=== PATIENT | female | born 1995 | race Native Hawaiian/Other Pacific Islander ===

== ENCOUNTER 2018-03-26 11:20 | Emergency (ER) | payer OTHER ==
[2018-03-26 11:52] VITALS: BP 130/88
--- NOTE | 2018-03-26 11:57 | Emergency Department Report ---
ED General Adult HPI - General Chief complaint: Extremity Injury, Lower Stated complaint: RT FOOT INFECTED/ONEIL/PAIN Time Seen by Provider: 03/26/18 11:48 Source: patient Mode of arrival: Ambulatory Limitations: No Limitations - History of Present Illness Initial comments: Patient presents to the emergency department with a chief complaint of a burn to her right foot that occurred on Friday. Patient states that hot coffee was spilled on her foot. Patient states she's been applying Neosporin on the wound since it occurred and presents today for evaluation to assure she does have an infection. -: Sudden Location: lower extremity Radiation: non-radiation Severity scale (0 -10): 2 Quality: burning Consistency: constant Improves with: none Worsens with: none Associated Symptoms: denies other symptoms Treatments Prior to Arrival: none ED Review of Systems ROS: Stated complaint: RT FOOT INFECTED/ONEIL/PAIN Other details as noted in HPI Comment: All other systems reviewed and negative Constitutional: denies: chills, fever Eyes: denies: eye pain, eye discharge, vision change ENT: denies: ear pain, throat pain Respiratory: denies: cough, shortness of breath, wheezing Cardiovascular: denies: chest pain, palpitations Endocrine: no symptoms reported Gastrointestinal: denies: abdominal pain, nausea, diarrhea Genitourinary: denies: urgency, dysuria, discharge Musculoskeletal: denies: back pain, joint swelling, arthralgia Skin: denies: rash, lesions Neurological: denies: headache, weakness, paresthesias Psychiatric: denies: anxiety, depression Hematological/Lymphatic: denies: easy bleeding, easy bruising ED Past Medical Hx - Past Medical History Previous Medical History?: No - Surgical History Past Surgical History?: No - Social History Smoking Status: Never Smoker ED Physical Exam - General Limitations: No Limitations General appearance: alert, in no apparent distress - Head Head exam: Present: atraumatic, normocephalic - Eye Eye exam: Present: normal appearance, PERRL, EOMI - ENT ENT exam: Present: mucous membranes moist - Neck Neck exam: Present: normal inspection - Respiratory Respiratory exam: Present: normal lung sounds bilaterally. Absent: respiratory distress, wheezes, rales, rhonchi - Cardiovascular Cardiovascular Exam: Present: regular rate, normal rhythm. Absent: systolic murmur, diastolic murmur, rubs, gallop - GI/Abdominal GI/Abdominal exam: Present: soft, normal bowel sounds. Absent: distended, tenderness - Extremities Exam Extremities exam: Present: normal inspection - Back Exam Back exam: Present: normal inspection - Neurological Exam Neurological exam: Present: alert, oriented X3, CN II-XII intact. Absent: motor sensory deficit - Psychiatric Psychiatric exam: Present: normal affect, normal mood - Skin Skin exam: Present: warm, dry, normal color, other (patient has a blister secondary to the burn on her right foot with no surrounding signs of cellulitis.around the blister there are small areas of secondary oneil). Absent: rash ED Course Vital Signs 03/26/18 03/26/18 03/26/18 11:31 11:42 11:45 Temperature 98.1 F Pulse Rate 87 Respiratory 16 Rate Blood Pressure 122/75 130/88 O2 Sat by Pulse 100 99 99 Oximetry ED Medical Decision Making - Medical Decision Making Discussed with the patient that there are no signs of infxn and that she should continue using her neosporin and Critical care attestation.: If time is entered above; I have spent that time in minutes in the direct care of this critically ill patient, excluding procedure time. ED Disposition Clinical Impression: Thermal burn Disposition: DC-01 TO HOME OR SELFCARE Is pt being admited?: No Does the pt Need Aspirin: No Condition: Stable Instructions: Superficial Burn (ED) Additional Instructions: return if worse Referrals: [facility] [Provider Group] - 3-5 Days [facility] [Provider Group] - 3-5 Days Time of Disposition: 12:00
== END 2018-03-26 12:32 | disposition home or self-care (01) ==
LOC: ED 11:20
DX: T25.221A Burn of second degree of right foot, initial encounter (principal); X08.8XXA Exposure to other specified smoke, fire and flames, initial encounter; Y93.89 Activity, other specified; Y92.89 Other specified places as the place of occurrence of the external cause; Y99.8 Other external cause status
CPT/HCPCS: 99282

== ENCOUNTER 2018-08-12 15:28 | Emergency (ER) | payer OTHER ==
[2018-08-12 15:51] VITALS: BP 150/99
[2018-08-12 16:08] LABS: Basophils # (Auto) 0.1 K/mm3 (0.0-0.1); Basophils % (Auto) 0.6 % (0.0-1.8); Eosinophils # (Auto) 0.1 K/mm3 (0.0-0.4); Eosinophils % (Auto) 1.3 % (0.0-4.3); Hematocrit 41.1 % (30.3-42.9); Hemoglobin 13.8 gm/dl (10.1-14.3); Lymphocytes # (Auto) 1.9 K/mm3 (1.2-5.4); Lymphocytes % (Auto) 19.3 % (13.4-35.0); Mean Corpuscular HGB Conc 34 % (30-34); Mean Corpuscular Volume 87 fl (79-97); Monocytes % (Auto) 10.4 % (0.0-7.3); Platelet Count 332 K/mm3 (140-440); Red Blood Count 4.74 M/mm3 (3.65-5.03); Red Cell Distribution Width 13.3 % (13.2-15.2)
[2018-08-12 16:22] LABS: Bacteria,Urine 1+ /HPF (Negative); Bilirubin,Urine NEG (Negative); Blood,Urine NEG (Negative); Color,Urine Straw (Yellow); Protein,Urine <15 mg/dL mg/dL (Negative); RBC,Urine < 1.0 /HPF (0.0-6.0); Urobilinogen,Urine < 2.0 mg/dL (<2.0)
--- NOTE | 2018-08-12 18:02 | Emergency Department Report ---
ED HPI - General Chief complaint: Vaginal Bleeding Stated complaint: /BLEEDING Time Seen by Provider: 08/12/18 16:56 Source: patient Mode of arrival: Ambulatory Limitations: No Limitations - History of Present Illness Initial comments: This is a 22-year-old female nontoxic, well nourished in appearance, no acute signs of distress presents to the ED with c/o of vaginal bleeding x1 day. Patient stated yesterday she noticed some spotting this morning. Patient denies any abdominal or pelvic pain. Patient denies any vaginal discharge or foul odor. Patient denies any nausea, vomiting, chest pain, shortness of breathe, fever, chills, headache, stiff neck, numbness, tingling. Patient denies any urinary symptoms. Patient denies any allergies or PMH. MD Complaint: vaginal bleeding -: days(s) (1) Radiation: none Severity scale (0 -10): 0 Consistency: constant Improves with: none Worsens with: none Associated symptoms: vaginal bleeding. denies: nausea/vomiting, vaginal discharge, abdominal pain, dysuria, headache, vision changes, malaise, dysparuenia, rash, seizure, shortness of breath, syncope, weakness Vaginal bleeding: light :: Yes Pre- care: none - Related Data Previous Rx's Medication Instructions Recorded Last Taken Type 21/Iron Fu/Folic Acid 1 each PO DAILY #30 tablet 08/12/18 Unknown Rx [ Complete Caplet] Allergies Allergy/AdvReac Type Severity Reaction Status Date / Time No Known Allergies Allergy Unverified 08/12/18 15:29 ED Review of Systems ROS: Stated complaint: /BLEEDING Other details as noted in HPI Constitutional: denies: chills, fever Eyes: denies: eye pain, eye discharge, vision change ENT: denies: ear pain, throat pain Respiratory: denies: cough, shortness of breath, wheezing Cardiovascular: denies: chest pain, palpitations Endocrine: no symptoms reported Gastrointestinal: denies: abdominal pain, nausea, diarrhea Genitourinary: abnormal menses. denies: urgency, dysuria, discharge Musculoskeletal: denies: back pain, joint swelling, arthralgia Skin: denies: rash, lesions Neurological: denies: headache, weakness, paresthesias Psychiatric: denies: anxiety, depression Hematological/Lymphatic: denies: easy bleeding, easy bruising ED Past Medical Hx - Past Medical History Previous Medical History?: No - Surgical History Past Surgical History?: No - Social History Smoking Status: Never Smoker Substance Use Type: None - Medications Home Medications: Home Medications Medication Instructions Recorded Confirmed Last Taken Type 21/Iron Fu/Folic Acid 1 each PO DAILY #30 tablet 08/12/18 Unknown Rx [ Complete Caplet] ED Physical Exam - General Limitations: No Limitations General appearance: alert, in no apparent distress - Head Head exam: Present: atraumatic, normocephalic - GI/Abdominal GI/Abdominal exam: Present: soft, normal bowel sounds. Absent: distended, tenderness, guarding, rebound, rigid, diminished bowel sounds - Extremities Exam Extremities exam: Present: normal inspection, full ROM - Back Exam Back exam: Present: normal inspection, full ROM. Absent: tenderness, CVA tenderness (R), CVA tenderness (L), muscle spasm, paraspinal tenderness, vertebral tenderness, rash noted - Neurological Exam Neurological exam: Present: alert, oriented X3 - Psychiatric Psychiatric exam: Present: normal affect, normal mood - Skin Skin exam: Present: warm, dry, intact, normal color. Absent: rash ED Course Vital Signs 08/12/18 15:49 Temperature 98.7 F Pulse Rate 102 H Respiratory 16 Rate Blood Pressure 150/99 [Left] O2 Sat by Pulse 96 Oximetry - Reevaluation(s) Reevaluation #1: 08/12/18 18:00 Patient is speaking in full sentences with no signs of distress noted. ED Medical Decision Making - Lab Data Result diagrams: 08/12/18 15:52 - Medical Decision Making This is a 22-year-old female presents with threatened miscarriage. Patient is stable and was examined by me. Normal abdominal exam. US OB obtained and dictated by the radiologist. Ua obtained. Quantative serum test obtained. Iman nt notified of the US report with no questions noted by the patient. Patient was instructed f/u with [facility] in 2 days. RH factor positive. Labs within normal limits. Patient was given strict precautions and education on ectopic . At time of discharge, the patient does not seem toxic or ill in appearance. No acute signs of distress noted. Patient agrees to discharge treatment plan of care. No further questions noted by the patient. Critical care attestation.: If time is entered above; I have spent that time in minutes in the direct care of this critically ill patient, excluding procedure time. ED Disposition Clinical Impression: Threatened miscarriage Disposition: DC-01 TO HOME OR SELFCARE Is pt being admited?: No Does the pt Need Aspirin: No Condition: Stable Instructions: Threatened Miscarriage (ED) Additional Instructions: Follow-up with a OBGYN doctor in 2-3 days or if symptoms worsen and continue return to emergency room as soon as possible. Prescriptions: 21/Iron Fu/Folic Acid [ Complete Caplet] 1 each PO DAILY #30 tablet Referrals: YESSENIA ZIEGLER MD [Primary Care Provider] - 3-5 Days [facility] [Referring] - 3-5 Days MISAEL GOODEN MD [Staff Physician] - 3-5 Days [facility] [Provider Group] - 3-5 Days Forms: Work/School Release Form(ED)
--- NOTE | 2018-08-12 18:43 | Ultrasound Report ---
PROCEDURE: US OB <= 14 WEEKS FETUS TECHNIQUE: Transabdominal and transvaginal imaging of the pelvis HISTORY: vaginal bleeding . Serum beta hCG level 53,990 (7-12 week ), unknown LMP COMPARISONS: None FINDINGS: Uterus: Uterus is enlarged in size and normal and homogeneous in echogenicity without focal fibroid f ormation. The uterus measures 11.5 x 4.8 x 7.2 cm in size. There is a single early viable intrauter ine gestation noted. Intrauterine gestation: There is a single intrauterine gestation identified with both a pole a nd yolk sac. heart rate is monitored at 119 BPM using M-mode doppler. [place]-rump length measur ement of 4.6 mm corresponds to estimated age 6 weeks 1 days with EDC 04/06/2019. Ovaries: Both ovaries appear normal in size and echogenicity with normal bloodflow bilaterally. The right ovary measures 2.3 x 1.8 x 2.8 cm and the left ovary measures 3.1 x 1.7 x 2.4 cm in size. The re is a complex cystic focus in the right ovary measuring 1.7 x 1.2 x 1.4 cm, likely the corpus luteu m Other: There is no evidence for solid adnexal mass is seen. There is no free fluid in the cul-de-s ac. IMPRESSION: Single intrauterine viable with an approximate age of 6 weeks 1 days. This document is electronically signed by Ester Cohen MD., August 12 2018 06:41:59 PM ET
--- NOTE | 2018-08-12 18:45 | Ultrasound Report ---
PROCEDURE: US OB TRANSVAGINAL TECHNIQUE: Transabdominal and transvaginal imaging of the pelvis HISTORY: vaginal bleeding . Serum beta hCG level 53,990 (7-12 week ), unknown LMP COMPARISONS: None FINDINGS: Uterus: Uterus is enlarged in size and normal and homogeneous in echogenicity without focal fibroid f ormation. The uterus measures 11.5 x 4.8 x 7.2 cm in size. There is a single early viable intrauter ine gestation noted. Intrauterine gestation: There is a single intrauterine gestation identified with both a pole a nd yolk sac. heart rate is monitored at 119 BPM using M-mode doppler. [place]-rump length measur ement of 4.6 mm corresponds to estimated age 6 weeks 1 days with EDC 04/06/2019. Ovaries: Both ovaries appear normal in size and echogenicity with normal bloodflow bilaterally. The right ovary measures 2.3 x 1.8 x 2.8 cm and the left ovary measures 3.1 x 1.7 x 2.4 cm in size. The re is a complex cystic focus in the right ovary measuring 1.7 x 1.2 x 1.4 cm, likely the corpus luteu m Other: There is no evidence for solid adnexal mass is seen. There is no free fluid in the cul-de-s ac. IMPRESSION: Single intrauterine viable with an approximate age of 6 weeks 1 days. This document is electronically signed by Ester Cohen MD., August 12 2018 06:43:18 PM ET
== END 2018-08-12 19:25 | disposition home or self-care (01) ==
LOC: ED 15:28
DX: O20.0 Threatened abortion (principal); Z3A.01 Less than 8 weeks gestation of pregnancy
CPT/HCPCS: 36415; 76801; 76817; 81001; 84702; 84703; 85025; 86900; 86901

== ENCOUNTER 2020-06-24 16:02 | Emergency (ER) | payer MEDICAID ==
[2020-06-24 16:39] LABS: Basophils % (Auto) 0.4 % (0.0-1.8); Eosinophils # (Auto) 0.2 K/mm3 (0.0-0.4); Eosinophils % (Auto) 2.4 % (0.0-4.3); Lymphocytes # (Auto) 1.9 K/mm3 (1.2-5.4); Lymphocytes % (Auto) 20.6 % (13.4-35.0); Mean Corpuscular HGB Conc 34 % (30-34); Mean Corpuscular Volume 88 fl (79-97); Monocytes # (Auto) 0.7 K/mm3 (0.0-0.8); Monocytes % (Auto) 7.6 % (0.0-7.3); Platelet Count 284 K/mm3 (140-440); Red Cell Distribution Width 12.4 % (13.2-15.2)
[2020-06-24 18:37] LABS: Bilirubin,Urine NEG (Negative); Blood,Urine NEG (Negative); Color,Urine Yellow (Yellow); Mucus,Urine FEW /HPF; Protein,Urine <15 mg/dL mg/dL (Negative); Urobilinogen,Urine < 2.0 mg/dL (<2.0)
--- NOTE | 2020-06-24 20:10 | Emergency Department Report ---
ED Female HPI - General Chief complaint: Vaginal Bleeding Stated complaint: 12 WKS BLEEDING Time Seen by Provider: 06/24/20 16:17 Source: patient Mode of arrival: Ambulatory Limitations: No Limitations - History of Present Illness Initial comments: Patient is a A2 24-year-old [place] female who is approximately 12 weeks gestation and who presents to the ED for evaluation after being advised by her [facility]IDENCE TECHNICIAN physician for a suspected persistent subchorionic bleed and hematoma for the last 3 weeks. Patient states that she was initially evaluated by her EVIDENCE TECHNICIAN physician 3 weeks ago and noticed a 2 mm subchorionic hematoma and bleed. Patient states that she was also reevaluated about a week ago and that the hematoma and subchronic bleed was still persistent and was advised to come to the ED today for evaluation. Patient however states that she still continues to have sexual intercourse despite these signs. Patient denies abdominal pain, pelvic pain, dysuria, urinary frequency and urgency, vaginal bleeding, vaginal discharge, traumatic injury, heavy lifting, back pain, fever, chills, cough, nausea and vomiting or diarrhea. MD Complaint: vaginal bleeding -: Sudden, week(s) (3) Location: suprapubic Radiation: non-radiating Severity: mild Severity scale (0 -10): 0 Quality: dull Consistency: intermittent Improves with: none Worsens with: none Are you Now?: Yes (12 Weeks gestation) Associated Symptoms: denies other symptoms. denies: vaginal discharge, vaginal bleeding, abdominal pain, nausea/vomiting, fever/chills, headaches, loss of appetite, dysuria, rash, seizure, shortness of breath - Related Data Sexually active: Yes : 4 Para: 1 A: 2 Previous Rx's Medication Instructions Recorded Last Taken Type 21/Iron Fu/Folic Acid 1 each PO DAILY #30 tablet 08/12/18 03/31/19 Rx [ Complete Caplet] Ibuprofen [Motrin 600 MG tab] 600 mg PO Q6H #30 tablet 04/02/19 Unknown Rx Vit-Fe Fumar-FA [ 1 each PO QDAY #30 tablet 04/02/19 Unknown Rx Vitamin] Allergies Allergy/AdvReac Type Severity Reaction Status Date / Time No Known Allergies Allergy Verified 06/24/20 16:16 ED Review of Systems ROS: Stated complaint: 12 WKS BLEEDING Other details as noted in HPI Constitutional: denies: chills, fever Eyes: denies: eye pain, eye discharge, vision change ENT: denies: ear pain, throat pain Respiratory: denies: cough, shortness of breath, wheezing Cardiovascular: denies: chest pain, palpitations Endocrine: no symptoms reported Gastrointestinal: other (Subchorionic hematoma and bleeding). denies: abdominal pain, nausea, diarrhea Genitourinary: other (Subchorionic hematoma and bleeding). denies: urgency, dysuria, discharge, abnormal menses Musculoskeletal: denies: back pain, joint swelling, arthralgia Skin: denies: rash, lesions Neurological: denies: headache, weakness, paresthesias Psychiatric: denies: anxiety, depression Hematological/Lymphatic: denies: easy bleeding, easy bruising ED Past Medical Hx - Past Medical History Hx Hypertension: No Hx Diabetes: No Hx Deep Vein Thrombosis: No Hx Renal Disease: No Hx Sickle Cell Disease: No Hx Seizures: No Hx Asthma: No Hx HIV: No - Social History Smoking Status: Never Smoker Substance Use Type: None - Medications Home Medications: Home Medications Medication Instructions Recorded Confirmed Last Taken Type 21/Iron Fu/Folic Acid 1 each PO DAILY #30 tablet 08/12/18 04/01/19 03/31/19 Rx [ Complete Caplet] Ibuprofen [Motrin 600 MG tab] 600 mg PO Q6H #30 tablet 04/02/19 Unknown Rx Vit-Fe Fumar-FA [ 1 each PO QDAY #30 tablet 04/02/19 Unknown Rx Vitamin] ED Physical Exam - General Limitations: No Limitations General appearance: alert, in no apparent distress - Head Head exam: Present: atraumatic, normocephalic, normal inspection - Eye Eye exam: Present: normal appearance, PERRL, EOMI Pupils: Present: normal accommodation - ENT ENT exam: Present: normal exam, normal orophraynx, mucous membranes moist, TM's normal bilaterally, normal external ear exam - Neck Neck exam: Present: normal inspection, full ROM - Respiratory Respiratory exam: Present: normal lung sounds bilaterally. Absent: respiratory distress, wheezes, rales, rhonchi, chest wall tenderness, accessory muscle use, decreased breath sounds, prolonged expiratory - Cardiovascular Cardiovascular Exam: Present: regular rate, normal rhythm, normal heart sounds. Absent: systolic murmur, diastolic murmur, rubs, gallop - GI/Abdominal GI/Abdominal exam: Present: soft, normal bowel sounds. Absent: tenderness, guarding, rebound, hyperactive bowel sounds, hypoactive bowel sounds, organomegaly - Bi-manual exam: Present: other (Pelvic exam deferred at this time) - Extremities Exam Extremities exam: Present: normal inspection, full ROM, normal capillary refill - Back Exam Back exam: Present: normal inspection, full ROM. Absent: tenderness, CVA tende rness (R), CVA tenderness (L), muscle spasm, paraspinal tenderness, vertebral tenderness - Neurological Exam Neurological exam: Present: alert, oriented X3, CN II-XII intact, normal gait, reflexes normal - Psychiatric Psychiatric exam: Present: normal affect, normal mood - Skin Skin exam: Present: warm, dry, intact, normal color. Absent: rash ED Medical Decision Making - Lab Data Result diagrams: 06/24/20 16:25 - Radiology Data Radiology results: report reviewed, [place] [address] Ultrasound Report Signed Patient: DOREEN MCKEON MR#: [id number] : 1995 Acct:[id number] Age/Sex: 24 / F ADM Date: 06/24/20 Loc: ED Attending Dr: Ordering Physician: LOKI WHITMORE Date of Service: 06/24/20 Procedure(s): US OB <= 14 weeks fetus Accession Number(s): [id number] cc: LOKI WHITMORE OB <= 14 weeks fetus INDICATION / CLINICAL INFORMATION: vaginal bleeding. COMPARISON: None available. FINDINGS: A single live fetus of approximately 11 weeks 6 days gestational age is seen in the uterus. [place]- rump length is 3.9 cm. heart rate is 141. A small subchorionic hemorrhage is seen. Both ovaries are normal in size and appearance. IMPRESSION: Single live fetus of approximately 11 weeks 6 days gestational age in the uterus. heart rate is 141 Signer Name: Kareem White MD FACR Signed: 06/24/2020 9:43 PM Workstation Name: [id number] Transcribed By: MS Dictated By: Kareem White MD Electronically Authenticated By: Kareem White MD Signed Date/Time: 06/24/202142 DD/ 38 TD/TT: Print - Medical Decision Making This is a A2 24-year-old [place] female who is approximately 12 weeks gestation and who presents to the ED for evaluation after being advised by her EVIDENCE TECHNICIAN physician for a suspected persistent subchorionic bleed and hematoma for the last 3 weeks. Patient states that she was initially evaluated by her EVIDENCE TECHNICIAN physician 3 weeks ago and noticed a 2 mm subchorionic hematoma and bleed. Patient states that she was also reevaluated about a week ago and that the hematoma and subchronic bleed was still persistent and was advised to come to the ED today for evaluation. Patient however states that she still continues to have sexual intercourse despite these signs. In the ED, patient is alert and oriented x3 and is not in any distress. Lab test results were reviewed and are all [place] [id number]. Transvaginal ultrasound showed a small subchorionic hemorrhage is seen. Both ovaries are normal in size and appearance. It also showed a single live fetus of approximately 11 weeks 6 days gestational age in the uterus. heart rate is 141. Patient was therefore discharged home and advised to maintain a complete pelvic rest, devoid of any heavy lifting, physical strenuous activities or sexual activity and to follow-up with her EVIDENCE TECHNICIAN physician in 5 to 7 days for reevaluation. Patient is advised return to the ED immediately if symptoms get worse. - Differential Diagnosis Threatened miscarriage; subchorionic bleed; ovarian cyst; UTI; Critical care attestation.: If time is entered above; I have spent that time in minutes in the direct care of this critically ill patient, excluding procedure time. ED Disposition Clinical Impression: Threatened miscarriage Subchorionic hemorrhage in first trimester Qualifiers: Fetus number: single or unspecified fetus Qualified Code(s): O41.8X10 - Other specified disorders of amniotic fluid and membranes, first trimester, not applicable or unspecified Disposition: DC-01 TO HOME OR SELFCARE Is pt being admited?: No Does the pt Need Aspirin: No Condition: Stable Instructions: Threatened Miscarriage, [id number], Vaginal Bleeding During , First Trimester, [id number], Subchorionic Hematoma Additional Instructions: All lab test results were reviewed and are all nonactionable. Transvaginal ultrasound showed a single live intrauterine of approximately 11 weeks and 6 days and with a heart rate of 141 bpm. It also showed a small subchorionic hemorrhage is seen. Both ovaries are normal in size and appearance. Therefore maintain a complete pelvic rest with no physical or strenuous activ ities, sexual activity or heavy lifting. Follow-up with your EVIDENCE TECHNICIAN physician in 5 to 7 days for reevaluation. Return to ED immediately if symptoms get worse. Referrals: FUAD TOLBERT MD [Staff Physician] - 3-5 Days Time of Disposition: 20:09 Print Language: MONGOLIAN
--- NOTE | 2020-06-24 21:47 | Ultrasound Report ---
US OB <= 14 weeks fetus INDICATION / CLINICAL INFORMATION: vaginal bleeding. COMPARISON: None available. FINDINGS: A single live fetus of approximately 11 weeks 6 days gestational age is seen in the uterus. [place]-rum p length is 3.9 cm. heart rate is 141. A small subchorionic hemorrhage is seen. Both ovaries ar e normal in size and appearance. IMPRESSION: Single live fetus of approximately 11 weeks 6 days gestational age in the uterus. heart rate is 141 Signer Name: Kareem White MD FACR Signed: 06/24/2020 9:43 PM Workstation Name: [id number]
[2020-06-24 22:47] VITALS: BP 145/81
== END 2020-06-24 22:50 | disposition home or self-care (01) ==
LOC: ED 16:02
DX: O20.0 Threatened abortion (principal); O20.8 Other hemorrhage in early pregnancy; Z3A.12 12 weeks gestation of pregnancy; Z79.1 Long term (current) use of non-steroidal anti-inflammatories (NSAID); Z79.899 Other long term (current) drug therapy
CPT/HCPCS: 36415; 76801; 76817; 81001; 84702; 85025; 86900; 86901